=== PATIENT | female | born 1930 | race Caucasian/White ===

== ENCOUNTER → 2016-11-11 | Outpatient (CLI) | payer MEDICARE, OTHER ==
--- NOTE | 2016-11-11 15:37 | MAM ---
EXAM DESCRIPTION: MAMMO BREAST SCREENING BILATERAL CAD, images were reviewed with CAD technology, R2 computer-aided detection. CLINICAL HISTORY: [facility]. COMPARISON: 2010. FINDINGS: Routine views are obtained. Scattered glandular pattern. No dominant mass, architectural distortion or clustered microcalcification.. IMPRESSION: Benign exam. BIRAD CATEGORY: 2 BENIGN RECOMMENDATIONS: FOLLOW-UP: Routine screening mammogram in one year. According to the [employer], yearly mammograms are recommended starting at age 40 and continuing as long as a woman is in good health. Any breast change noted on a breast self-exam should be reported promptly to the patient's healthcare provider. Breast MRI is recommended for women with an approximately 20-25% or greater lifetime risk of breast cancer, including women with a strong family history of breast or ovarian cancer and women who have been treated for Hodgkin's disease. Electronically signed by: Donna Srinivasan 11/11/2016 15:36
== END ==
LOC: MAMMO 08:29
PROVIDERS: ATTEND Family Medicine
DX: Z12.31 Encounter for screening mammogram for malignant neoplasm of breast (principal)
CPT/HCPCS: 77052; G0202

== ENCOUNTER 2017-09-15 11:38 | Emergency (ER) | payer MEDICARE, OTHER ==
[2017-09-15] MEDS ORDERED: SODIUM CHLORIDE 0.9% 1000ML 1,000 ML IVS ONE (12:12)
--- NOTE | 2017-09-15 12:15 | ED.PDOC ---
History of Present Illness - General Chief Complaint: Abdominal Pain Stated Complaint: N/V/D and feeling weak Time Seen by Provider: 09/15/17 12:12 Information Source: patient, RN notes reviewed, Vital Signs reviewed Exam Limitations: no limitations - History of Present Illness Initial Comments: Patient presents to the ER with c/o nausea, vomiting, diarrhea and generalized weakness. Symptoms started 09/11/17 with N/V and generalized abd pain. That lasted 2 days. Now she is having a little bit of diarrhea and just feels like she has no energy. She is concerned she is dehydrated. started with the same symptoms on 09/12/17. Abdominal Pain Onset Location: generalized abdomen Pain Radiation: no radiation Quality: moderate, cramping Timing/Duration: days - 4 Improving Factors: nothing Worsening Factors: nothing Associated Symptoms: diarrhea, fatigue, nausea/vomiting, weakness Review of Systems - Review of Systems Constitutional: States: chills, malaise, weakness. Denies: fever EENTM: States: no symptoms reported Respiratory: States: no symptoms reported Cardiology: States: no symptoms reported Gastrointestinal/Abdominal: States: see HPI Genitourinary: States: no symptoms reported Musculoskeletal: States: joint pain - bilateral hips Skin: States: no symptoms reported Neurological: States: no symptoms reported Past Medical History (General) - Patient Medical History Hx Hypertension: Yes - Social History Hx Tobacco Use: No Family Medical History - Family History Mother Family History: Unknown Physical Exam - Physical Exam General Appearance: Alert, Comfortable, No apparent distress, Well Developed, Well Groomed, Well Hydrated, Well Nourished Neck: non-tender, full range of motion, supple, normal inspection Respiratory: lungs clear, normal breath sounds, no respiratory distress, no accessory muscle use Cardiovascular/Chest: normal peripheral pulses, regular rate, rhythm, no gallop , no JVD, no murmur Peripheral Pulses: 2+ Gastrointestinal/Abdominal: normal bowel sounds, non tender, soft, no organomegaly, no pulsatile mass Extremity: normal inspection Neurologic: alert, normal mood/affect, oriented x 3 Skin Exam: normal color, warm/dry Progress - Progress Progress: 09/15/17 13:41 Patient thinks she is feeling better. Still looks slightly dehydrated so will give and additional 500cc NS bolus - Results/Orders Results/Orders: Laboratory Tests 11/20/17 11/20/17 12:27 12:27 WBC 5.0 RBC 4.03 L Hgb 12.3 Hct 36.2 MCV 90.0 MCH 30.5 MCHC 33.8 RDW 13.8 Plt Count 236 MPV 7.3 L Absolute Neuts (auto) 3.40 Absolute Lymphs (auto) 0.90 L Absolute Monos (auto) 0.70 Absolute Eos (auto) 0.00 Absolute Basos (auto) 0.00 Neutrophils % 67.6 Lymphocytes % 17.4 L Monocytes % 14.6 H Eosinophils % 0.1 L Basophils % 0.3 Sodium 132 L Potassium 3.7 Chloride 100 L Carbon Dioxide 22 Anion Gap 13.7 BUN 27 H Creatinine 1.39 H BUN/Creatinine Ratio 19.4 Random Glucose 128 H Serum Osmolality 271.3 L Calcium 9.3 Total Bilirubin 0.4 AST 19 ALT 9 L Alkaline Phosphatase 59 Serum Total Protein 7.0 Albumin 3.5 Globulin 3.5 Albumin/Globulin Ratio 1.0 L Departure - Departure Clinical Impression: Gastroenteritis, Dehydration, mild Time of Disposition: 14:31 Disposition: Discharge to Home or Self Care Condition: Good Departure Forms: ED Discharge - Pt. Copy, Patient Portal Self Enrollment Instructions: DI for Viral Gastroenteritis -- Adult Diet: resume usual diet Activity: increase activity as tolerated Referrals: Omar Serna MD [Primary Care Provider] - 1-2 Weeks Home Medications: Ambulatory Orders Lisinopril 40 mg DAILY 07/26/14
[2017-09-15 12:58] VITALS: O2SAT 99
[2017-09-15] MEDS ORDERED: SODIUM CHLORIDE 0.9% 500ML 500 ML IVS ONE (13:41)
[2017-09-15 15:00] VITALS: BP 128/70; TEMP 97.9
== END 2017-09-15 14:58 | disposition home or self-care (01) ==
LOC: ER 11:38
DX: K52.9 Noninfective gastroenteritis and colitis, unspecified (principal); E86.0 Dehydration; I10 Essential (primary) hypertension
CPT/HCPCS: 36415; 80053; 85025; J7030; J7040

== ENCOUNTER → 2017-11-11 | Outpatient (CLI) | payer MEDICARE, OTHER | END | disposition home or self-care (01) | LOC: GMAJ 10:19 | PROVIDERS: ATTEND Family Medicine | DX: I10 Essential (primary) hypertension (principal) ==

== ENCOUNTER → 2017-11-12 | Outpatient (CLI) | payer MEDICARE, OTHER ==
--- NOTE | 2017-11-13 09:04 | MAM ---
EXAM DESCRIPTION: 3D Screening BILATERAL : Digital Mammography. CLINICAL HISTORY: 87 years Female SCREENING . No complaints. No family history of breast cancer. Postmenopausal. HRT 5 or more years ago. Right breast cyst aspiration. COMPARISON: 2-D digital screening bilateral studies 11/11/2016 and 10/24/2015. Report from prior examination also reviewed. TECHNIQUE: Bilateral CC and MLO projection full-field images, 3-D tomosynthesis digital mammographic technique. Also bilateral synthesized CC/ MLO full-field images . CAD not utilized. 2-D digital full-field images, MLO and CC projections bilaterally, non-displaced, with CAD. FINDINGS: The breast parenchymal density pattern is: Almost entirely fatty. No skin thickening or nipple retraction bilateral intramammary lymph nodes. Bilateral vascular calcifications. Bilateral solitary microcalcifications. No focal, stellate mass or density, focal asymmetry , and no suspicious microcalcifications bilaterally. Stable mammograms compared to prior study, taking into account differences in mammographic technique IMPRESSION: BI-RADS CATEGORY: 2 - BENIGN FINDINGS. FOLLOW UP: Routine digital bilateral screening, one year interval from October 2017. Written communication explaining the IMPRESSION and follow-up, will be mailed to the patient and referring health care provider. According to the [employer], yearly mammograms are recommended starting at age 40 and continuing as long as a woman is in good health. Any breast change noted on a breast self-exam should be reported promptly to the patient's healthcare provider. Breast MRI is recommended for women with an approximately 20-25% or greater lifetime risk of breast cancer, including women with a strong family history of breast or ovarian cancer and women who have been treated for Hodgkin's disease. A negative mammographic report should not delay tissue diagnosis in patients with significant clinical history or physical findings. Extremely dense breast tissue limits the sensitivity of digital mammography. Electronically signed by: Amos Griffin MD 11/13/2017 9:04 AM PROFILE GRINDER
== END | disposition home or self-care (01) ==
LOC: MAMMO 11:20
PROVIDERS: ATTEND Family Medicine
DX: Z12.31 Encounter for screening mammogram for malignant neoplasm of breast (principal)

== ENCOUNTER 2018-02-24 14:40 | Inpatient (IN) | payer MEDICARE, OTHER ==
--- NOTE | 2018-02-24 15:02 | HP ---
SUPERVISING PHYSICIAN: Yoav Matamoros MD CHIEF COMPLAINT: Right hip pain. HISTORY OF PRESENT ILLNESS: Ms. Pollock is an 87 year-old female patient that presented to Dr. Serna office today with right hip pain. She noted to be at [place] with friends and was walking up an embankment, slipped and tried to get hold of a tree that gave way resulting in her laying on her right hip resulting in severe pain. In the clinic, x-rays were completed revealing a subcapital fracture of the right femur. Dr. Link requested the patient be directed admitted after talking with Dr. Perera, orthopedist, and is to have a surgical repair in the morning. The patient is now going to be admitted directly from the clinic for a right hip fracture. The patient was in stable condition on admission. PAST MEDICAL HISTORY: 1. Hypertension with a grade 2 diastolic heart failure. 2. Osteoarthritis. 3. Osteopenia. PAST SURGICAL HISTORY: 1. Appendectomy. 2. Cholecystectomy. 3. Hysterectomy. 4. Total right knee replacement. CURRENT MEDICATIONS: 1. Multivitamins with minerals daily. 2. Aspirin low-dose 81 mg. 3. Lisinopril 40 mg daily. 4. Carvedilol 6.25 mg at bedtime. 5. Amlodipine 5 mg daily. ALLERGIES: No known drug allergies. FAMILY HISTORY: Mother at age 88 due to ovarian cancer. Father at age 82 due to acute myocardial infarction. SOCIAL HISTORY: The patient is retired, is and lives in [place]. She has never smoke and does not drink alcohol. REVIEW OF SYSTEMS: CONSTITUTIONAL: Denies fever or chills. HEENT: No headaches, sore throat, nasal congestion, earaches. RESPIRATORY: No shortness of breath, cough or wheezing. CARDIOVASCULAR: No reported chest pain, palpitations, syncopal episodes. GASTROINTESTINAL: No nausea, vomiting, diarrhea or abdominal pain. EXTREMITIES: As per history of present illness. Pain to the right hip with a documented hip fracture radiographically. No reported paresthesias, no edema. NEUROLOGIC: She is alert and oriented x 3. There are no reported syncopal episodes, ataxia, dysesthesia. PHYSICAL EXAMINATION: VITAL SIGNS: Temperature 97.7, pulse 73, blood pressure 158/76, respirations 16, saturation 94% on room air. Admission weight 78.4 kg. GENERAL: The patient appears to be comfortable in no acute distress, she is alert. HEENT: Tympanic membranes are clear bilaterally. Oropharynx is pink and moist without any lesions. NECK: Supple, non-tender with full range of motion, no jugular venous distention. CHEST: Clear to auscultation with rhonchi, rales, or wheezes. CARDIOVASCULAR: Regular rate and rhythm without murmurs, gallops, or rubs. ABDOMEN: Soft, non-tender with positive bowel sounds. EXTREMITIES: Lower extremities showed no lateral rotation or internal rotation in the right lower extremity. She is able to move ad shantel with no reported paresthesias. There is no deformity noted over the right hip. No bruising is found. Pulses distally are strong, capillary refill is brisk. NEUROLOGIC: She is alert and oriented x 3. Facial features were symmetrical. Extraocular movement within normal limits with no notable nystagmus. Cranial nerves II through XII are grossly intact. LABORATORY: CBC showed a white count of 8,100, hemoglobin 9.6, hematocrit 34.9 , platelet count 260,000. Coagulation studies showed normal PT/PTT. Chemistries showed normal electrolytes, potassium 4.0, BUN 29, creatinine 1.19, glucose 105 calcium 9.5. Liver functions all within normal limits. Urinalysis pending. RADIOLOGY: She had a 2-view hip in the clinic that revealed subcapital right hip fractured femur. She had a pelvic x-ray per radiology interpretation showed nonimpacted subcapital fracture of the right femur. No other acute findings. ASSESSMENT: 1. Acute subcapital fracture of the right femur status post same level fall. 2. Hypertension. 3. Osteoarthritis. 4. Osteopenia likely contributing to #1. PLAN: The patient is going to admitted directly to the medical/surgical floor in anticipation of right hip repair in the morning by Dr. Perera, orthopedic surgeon. She will be worked up for preparation purposes, labs, x-ray. She will be n.p.o. tonight. Will hold her lisinopril until in the morning. Dr. Perera has been consulted. She will have some IV fluids for some mild dehydration to include half normal saline with 20 of potassium run at 80 an hour. She will be on DVT prophylaxis with SCDs and then postoperatively as per orthopedic protocol. Will anticipate her length of stay to be at least 2 to 3 days. Until discharge, we will continue to monitor closely and treat appropriately. [facility][id number] [facility]
[2018-02-24] MEDS ORDERED: SODIUM CHLORIDE 0.9% (FLUSH) 10 ML SYG IV PRN (15:08)
--- NOTE | 2018-02-24 16:16 | RAD ---
EXAM DESCRIPTION: Pelvis,2 or More Views CLINICAL HISTORY: 87 years Female rt hip fx preop COMPARISON: None. TECHNIQUE: Pelvis, two view FINDINGS: There is an impacted subcapital fracture of the right femur. Fracture is not significantly displaced. Left hip appears intact. Mild degenerative changes in the hips bilaterally. Mild degenerative changes the lower lumbar spine. Symphysis pubis and SI joints appear intact. IMPRESSION: Mildly impacted subcapital fracture of the right femur Electronically signed by: Yoko Cazares MD 02/24/2018 4:15 PM CDT
[2018-02-24] MEDS: IV SET AND CAP CHANGE INJ INJ SCH (16:38)
[2018-02-24] MEDS: HYDROcodone 5MG/APAP 325MG 1 EA TAB PO PRN (18:09)
[2018-02-24] MEDS: KCL 20MEQ/0.45% NS 1,000 ML IVS PRN (19:06)
[2018-02-24] MEDS ORDERED: CARVEDILOL 3.125 MG TAB ONE (19:25)
[2018-02-24] MEDS ORDERED: NON-FORMULARY MEDICATION 1 EA MIS (Carvedilol [Carvedilol] 6.25 MG) PO SCH (21:00)
[2018-02-25] MEDS: MORPHINE SULFATE INJ 10 MG/ML VIAL IV PRN ×2 (02:56→13:03)
[2018-02-25] MEDS ORDERED: BUPIVACAINE 0.25% W/EPI 50 ML VIAL INJ ONE (06:03)
[2018-02-25] MEDS ORDERED: ceFAZolin SODIUM 1 GM VIAL ONE (06:03)
[2018-02-25] MEDS ORDERED: fentaNYL CITRATE INJ 50 MCG/ML AMP ONE ×2 (06:14→10:31)
[2018-02-25] MEDS ORDERED: LACTATED RINGERS 1,000 ML ONE ×2 (06:14→08:46)
[2018-02-25] MEDS ORDERED: LIDOCAINE 2 % GEL 5 ML TUBE TOP ONE (06:15)
[2018-02-25] MEDS ORDERED: ROCURONIUM BROMIDE 10 MG/ML VIAL ONE (06:32)
[2018-02-25] MEDS: amLODIPine BESYLATE 5 MG TAB PO SCH ×2 (06:48→09:53)
[2018-02-25] MEDS ORDERED: VANCOMYCIN HCL INJ 1,000 MG VIAL IVPB ONE ×2 (06:55→20:07)
[2018-02-25] MEDS ORDERED: ceFAZolin SODIUM 2 GRAMS PREMI 50 ML IVPB ONE ×3 (06:55→20:07)
[2018-02-25] MEDS ORDERED: VANCOMYCIN HCL INJ 1,000 MG in SODIUM CHLORIDE 0.9% 250ML 250 ML IVPB ONE ×2 (06:56→09:18)
[2018-02-25] MEDS ORDERED: SODIUM CHLORIDE 0.9% 250ML 250 ML ONE ×2 (06:56→20:07)
[2018-02-25] MEDS ORDERED: ceFAZolin SODIUM 2 GRAMS PREMI 2 GM in PREMIX BAG 1 BAG IVPB ONE (06:57)
[2018-02-25] MEDS ORDERED: ceFAZolin SODIUM 1 GM VIAL IVPB ONE (07:30)
[2018-02-25] MEDS ORDERED: SODIUM CHLORIDE 0.9% 10 ML VIAL IV PRN (07:39)
[2018-02-25] MEDS: ceFAZolin SODIUM 1 GM VIAL ONE ×2 (07:54→08:43)
[2018-02-25] MEDS: VANCOMYCIN HCL INJ 1,000 MG VIAL IVPB ONE ×2 (07:54→08:43)
[2018-02-25] MEDS ORDERED: MORPHINE SULFATE *EPIDURAL* 0.5 MG/ML VIAL ONE (08:46)
[2018-02-25] MEDS ORDERED: ENOXAPARIN SODIUM 30 MG/0.3 ML SYG SUBCU SCH (09:30)
[2018-02-25] MEDS ORDERED: ceFAZolin SODIUM 2 GRAMS PREMI 2 GM in PREMIX BAG 1 BAG IVPB SCH (09:30)
[2018-02-25] MEDS ORDERED: ATROPINE SULFATE 0.4 MG/ML 1ML VIAL IV ONE (10:00)
[2018-02-25] MEDS ORDERED: NEOSTIGMINE METHYLSULFATE 1 MG/ML ML IV ONE (10:00)
[2018-02-25] MEDS ORDERED: LIDOCAINE 1% 10 ML VIAL INJ ONE (10:00)
[2018-02-25] MEDS ORDERED: PROPOFOL 200 MG/20 ML VIAL IV ONE (10:00)
[2018-02-25] MEDS ORDERED: fentaNYL CITRATE INJ 50 MCG/ML AMP IV ONE (10:38)
--- NOTE | 2018-02-25 10:40 | RAD ---
EXAM DESCRIPTION: Hip,Right 2 Views CLINICAL HISTORY: 87 years Female, post-op COMPARISON: None. FINDINGS: 2 views of the right hip show postoperative changes related to right hip arthroplasty without hardware other surgical complication. Gas in the soft tissues lateral to the right hip joint is likely related to recent surgery. No periprosthetic fracture. No concerning radiopaque foreign body. IMPRESSION: Uncomplicated postoperative changes in the right hip. Electronically signed by: Carlos Walton MD 02/25/2018 10:39 AM CDT
--- NOTE | 2018-02-25 10:41 | RAD ---
EXAM DESCRIPTION: Pelvis,2 or More Views CLINICAL HISTORY: 87 years Female, post-op COMPARISON: None. FINDINGS: AP and frog leg views the pelvis again show postoperative changes in the right hip without apparent hardware or other surgical complication. No periprosthetic or other pelvic fracture or malalignment is seen. The soft tissues are unremarkable. Moderate amount of colonic stool and gas. Mild to moderate degenerative changes in the left hip including joint space narrowing. IMPRESSION: Postoperative changes in the right hip without apparent surgical complication. Moderate degenerative changes in the left hip and a moderate amount of colonic stool and gas. Electronically signed by: Carlos Walton MD 02/25/2018 10:40 AM CDT
--- NOTE | 2018-02-25 11:41 | CONS ---
CHIEF COMPLAINT: Right hip pain. HISTORY OF PRESENT ILLNESS: Ms. Pollock is an 87-year-old female that fell on the day of presentation. She presented to Dr. Serna and Dr. Serna did an x-ray which showed fracture of the right hip. Because of the fracture, Ms. Pollock was admitted. I was consulted for this hip pain. After speaking with her, she denied any other injury associated with this fall, denied any radiation of pain and denied any neurologic symptoms. PAST MEDICAL HISTORY: 1. Hypertension. 2. Arthritis. 3. Osteopenia. PAST SURGICAL HISTORY: 1. Appendectomy. 2. Cholecystectomy. 3. Hysterectomy. 4. Knee replacement. MEDICATIONS: 1. Aspirin. 2. Lisinopril. 3. Carvedilol. 4. Amlodipine. 5. Multiple vitamins. ALLERGIES: NO KNOWN DRUG ALLERGIES. SOCIAL HISTORY: The patient does not drink, smoke or use any illicit drugs. FAMILY HISTORY: None pertinent to today's complaint. REVIEW OF SYSTEMS: Negative except as indicated in the History of Present Illness. PHYSICAL EXAMINATION: VITAL SIGNS: Blood pressure 158/76. Respirations 16. O2 saturation 94% on room air. Temperature 97.7. Pulse 73. MENTAL STATUS: The patient is awake, alert, and is able to give a good history and participate in the physical. The patient is oriented to person, place and time. SKIN: Normal tone and turgor. HEENT: Normocephalic, atraumatic. Pupils equal, round and reactive. Mucosal membranes are moist. NECK: Normal range of motion. No thyromegaly, no lymphadenopathy. CHEST: Normal respiratory excursion. CARDIAC: Regular rate and rhythm. No murmurs, rubs or gallops. MUSCULOSKELETAL: Bilateral upper extremities show full active range of motion without pain. She has intact sensation. There is no deformity and no crepitus. Strength is 5/5. The left lower extremity shows no pain with range of motion of the hip. She has no pain with range of motion o f the knee. Sensation is intact with no deformity and it is warm and well perfused. The right hip shows pain with any attempted range of motion. Sensation is intact. It is warm and well perfused. There is no deformity. Plantar flexion strength is 5/5. IMAGING: X-rays show a subcapital femoral neck fracture. ASSESSMENT: 1. Femoral neck fracture. PLAN: The plan at this point is for hemiarthroplasty. We have discussed the risks, benefits, and alternatives to that with the patient and she has given informed consent. [facility][id number] [facility]
[2018-02-25] MEDS: KCL 20MEQ/0.45% NS 1,000 ML IVS PRN (12:50)
--- NOTE | 2018-02-25 13:30 | OP ---
PREOPERATIVE DIAGNOSIS: 1. Femoral neck fracture of right hip. POSTOPERATIVE DIAGNOSIS: 1. Femoral neck fracture of right hip. PROCEDURE: 1. Hemiarthroplasty. SURGEON: Andrez Perera MD. LACING PRESSER: Amos Ward CST, SA-C. ANESTHESIA: General. COMPLICATIONS: None. FINDINGS: Basicervical femoral neck fracture. INDICATION: Ms. Pollock is an 87-year-old female that fell on the day of presentation. She had the acute onset of pain of the hip that she localized to the groin. She denies any other injury associated with this fall. She was admitted and x-rays revealed a fracture of the femoral neck. She was admitted for operative intervention. We discussed the risks, benefits and alternatives to operative therapy for this and informed consent was given for hemiarthroplasty. PROCEDURE: The patient was brought to the Operating Room and placed in supine position. Anesthesia was induced and the patient was transitioned into the lateral decubitus position. The leg and hemipelvis were sterilely prepped and draped and an incision was made centered on the greater trochanter with extension both proximally and distally. Dissection was carried down to the iliotibial band which was sharply incised along the course of its fibers. A Charnley retractor was placed and the abductor musculature was identified. The anterior one-third of the abductor musculature was elevated off the greater trochanter using electrocautery and the capsule was incised. The femoral head was removed and the primary femoral neck cut was made. The acetabulum was examined and found to be free of any significant defect, therefore attention was focused on the femur. The femoral canal was sequentially broached until an appropriate sized trial prosthesis was placed. A trial femoral head was placed and the hip was reduced. The hip was taken through a full range of motion and demonstrated stability without impingement or pending dislocation and the leg length appeared to be paresthesias. Following trialing, the trial component was removed and the femoral canal was prepared for cementation of the prosthesis. A distal cement restrictor was placed and the final component was cemented into place. The excess cement was removed and the remaining cement was allowed to cure. The final head was impacted and the hip was reduced, taken through a full range of motion, and found to be stable without impingement. The wound was thoroughly irrigated and the abductor musculature was reapproximated to the greater trochanter through drill holes using Ethibond. The repair was augmented with PDS suture and the iliotibial band was subsequently closed. The subcutaneous tissues were closed with a combination of running and interrupted subcuticular stitches, a sterile dressing was placed , and the patient was transitioned into the supine position. The patient was awoken from anesthesia and taken to the Recovery Room in stable condition. POSTOPERATIVE INSTRUCTIONS: The patient will be weight-bearing as tolerated on postoperative day 1. COMPONENTS: Sadi SecureFit hemiarthroplasty stem, size 6 femoral stem and size 49 head. #[id number] [facility]
--- NOTE | 2018-02-25 15:28 | PN ---
DATE: 02/25/18 SUPERVISING PHYSICIAN: Yoav Matamoros M.D. SUBJECTIVE: The patient is lying in her hospital bed. She is visiting with family and friends. I am seeing her postoperatively after her right hemiarthroplasty. She has no complaints postoperatively. There is no nausea, vomiting, chest pain or shortness of breath. OBJECTIVE: VITAL SIGNS: She is afebrile, heart rate 62, blood pressure 123/69, respiratory rate 16, O2 sat 95% on 2 liters nasal cannula. RESPIRATORY: Essentially clear to auscultation bilaterally. CARDIAC: Regular rate and rhythm. GASTROINTESTINAL: Abdomen is soft, nondistended, non-tender. Bowel sounds are positive. EXTREMITIES: She has a dressing to her right lateral hip that is dry and intact. Bilateral pedal pulses are palpable at +2. NEUROLOGIC : She is awake, alert and oriented times three. LABORATORY: There are no labs and films to report at this time. ASSESSMENT: 1. Acute subcapital fracture of the right femur status post same level fall. 2. Postoperative day zero right hemiarthroplasty performed by Dr. Andrez Perera, orthopedic surgeon due to #1. 3. Hypertension. 4. Osteoarthritis. 5. Osteopenia that may have contributed to #1. PLAN: We will continue present supportive care. Tomorrow she will begin her physical therapy for strengthening and conditioning. Orthopedic issues will be per Dr. Perera, orthopedic surgeon. I have ordered an H&H for in the morning. Other lab is stable at this time. I have encouraged good pulmonary hygiene. We will continue to monitor the patient closely and follow as needed. Dr. Matamoros is the collaborating physician available for consultation. #[id number] [facility]
[2018-02-25] MEDS: ceFAZolin SODIUM 2 GRAMS PREMI 2 GM in PREMIX BAG 1 BAG IVPB SCH ×2 (15:41→23:24)
[2018-02-25] MEDS: ONDANSETRON INJ 4 MG/2 ML VIAL IV PRN (16:54)
[2018-02-25] MEDS: VANCOMYCIN HCL INJ 1,000 MG in SODIUM CHLORIDE 0.9% 250ML 250 ML IVPB SCH (20:29)
[2018-02-25] MEDS: CARVEDILOL 3.125 MG TAB PO SCH (20:48)
[2018-02-25] MEDS: HYDROcodone 5MG/APAP 325MG 1 EA TAB PO PRN (20:48)
[2018-02-25] MEDS: ENOXAPARIN SODIUM 30 MG/0.3 ML SYG SUBCU SCH (22:12)
[2018-02-26] MEDS: HYDROcodone 5MG/APAP 325MG 1 EA TAB PO PRN ×3 (02:51→14:54)
[2018-02-26] MEDS: KCL 20MEQ/0.45% NS 1,000 ML IVS PRN ×2 (03:00→17:55)
[2018-02-26] MEDS ORDERED: ceFAZolin SODIUM 2 GRAMS PREMI 50 ML IVPB ONE (04:28)
[2018-02-26] MEDS: ceFAZolin SODIUM 2 GRAMS PREMI 2 GM in PREMIX BAG 1 BAG IVPB SCH (06:52)
[2018-02-26] MEDS ORDERED: SODIUM CHLORIDE 0.9% 250ML 250 ML ONE (08:02)
[2018-02-26] MEDS ORDERED: VANCOMYCIN HCL INJ 1,000 MG VIAL IVPB ONE (08:03)
[2018-02-26] MEDS: VANCOMYCIN HCL INJ 1,000 MG in SODIUM CHLORIDE 0.9% 250ML 250 ML IVPB SCH (08:39)
[2018-02-26] MEDS: ENOXAPARIN SODIUM 30 MG/0.3 ML SYG SUBCU SCH ×2 (10:15→22:02)
[2018-02-26] MEDS: amLODIPine BESYLATE 5 MG TAB PO SCH (10:15)
[2018-02-26] MEDS: ONDANSETRON INJ 4 MG/2 ML VIAL IV PRN (13:28)
--- NOTE | 2018-02-26 18:01 | PN ---
DATE: 02/26/18 SUPERVISING PHYSICIAN: Yoav Matamoros M.D. SUBJECTIVE: The patient is sitting in her hospital bed eating her meal. Her family is at the bedside. She had several bouts of nausea today with some vomiting but not sure the medications gave her help. She complains she does not have much of an appetite. OBJECTIVE: VITAL SIGNS: She is afebrile, heart rate 78, blood pressure 107/58, respiratory rate 16, O2 sat 97% on 2 liters nasal cannula. RESPIRATORY: Essentially clear to auscultation bilaterally. CARDIAC: Regular rate and rhythm. GASTROINTESTINAL: Abdomen is soft, nondistended, non-tender. Bowel sounds are positive. EXTREMITIES: She has a dressing along her right lateral hip that is dry and intact. Bilateral pedal pulses are palpable at +2. NEUROLOGIC: She is awake, alert and oriented times three. LABORATORY: Hemoglobin 9.4, hematocrit 27.6. All other labs and films have been reviewed via the EMR. ASSESSMENT: 1. Acute subcapital fracture of the right femur status post same level fall. 2. Postoperative day #1 right hemiarthroplasty performed by Dr. Andrez Perera, orthopedic surgeon due to #1. 3. Hypertension. 4. Osteoarthritis. 5. Osteopenia.. PLAN: We will continue present supportive care. She will continue with physical therapy for strengthening and conditioning. Orthopedic issues will be per Dr. Andrez Perera, orthopedic surgeon. I have encouraged good pulmonary hygiene. Discharge planning includes discharge probably Friday or Friday of next week and she will be discharged home. She has requested that [facility] physical therapy see her after discharge. We will continue to monitor the patient closely and follow as needed. Dr. Matamoros is the collaborating physician available for consultation. #[id number] [facility]
[2018-02-26] MEDS: ACETAMINOPHEN 325 MG TAB PO PRN (18:03)
[2018-02-26] MEDS: CARVEDILOL 3.125 MG TAB PO SCH (21:06)
[2018-02-27] MEDS: KCL 20MEQ/0.45% NS 1,000 ML IVS PRN (05:51)
[2018-02-27] MEDS: HYDROcodone 5MG/APAP 325MG 1 EA TAB PO PRN ×2 (06:16→21:14)
[2018-02-27] MEDS: amLODIPine BESYLATE 5 MG TAB PO SCH (10:06)
[2018-02-27] MEDS: ENOXAPARIN SODIUM 30 MG/0.3 ML SYG SUBCU SCH ×2 (10:06→21:34)
[2018-02-27] MEDS: ACETAMINOPHEN 325 MG TAB PO PRN (13:56)
[2018-02-27] MEDS: IV SET AND CAP CHANGE INJ INJ SCH (15:35)
[2018-02-27] MEDS ORDERED: POLYETHYLENE GLYCOL 3350 17 GM PCKT PO PRN (18:53)
--- NOTE | 2018-02-27 19:53 | PN ---
SUPERVISING PHYSICIAN: Yoav Matamoros MD DATE: 02/27/18 SUBJECTIVE: The patient is lying in her hospital bed. Her daughter is at the bedside. She has no complaints of nausea, vomiting, diarrhea or constipation, chest pain or shortness of breath. OBJECTIVE: VITAL SIGNS: Afebrile. Heart rate 84. Blood pressure 128/55. Respiratory rate 16. O2 saturation 95% on 1 liter nasal cannula. RESPIRATORY: Essentially clear to auscultation bilaterally. CARDIAC: Regular rate and rhythm. EXTREMITIES: She has a dressing to her right lateral hips that is dry and intact. Bilateral pedal pulses are palpable at +2. NEUROLOGIC: Awake, alert and oriented times three. LABORATORY: There are no labs and films to report at this time. ASSESSMENT: 1. Acute subcapital fracture of the right femur status post same level fall. 2. Postoperative day #2 right hemiarthroplasty performed by Dr. Andrez Perera, orthopedic surgeon, due to #1. 3. Hypertension. 4. Osteoarthritis. 5. Osteopenia. PLAN: We will continue present supportive care. Orthopedic issues will be per Dr. Andrez Perera, orthopedic surgeon. She will continue with her physical therapy for strengthening and conditioning. We are not sure on her discharge date and there is still some question as to whether she will go home with [facility] or if she will be discharged from the Acute Care setting to Swing Bed admission. We will follow physical therapy with their recommendations. I have also initiated bladder training and we will discontinue her Rodriguez once that is completed. We will continue to monitor the patient closely and follow as needed. Dr. Matamoros is the collaborating physician and available for consultation. #[id number] [facility]
[2018-02-27] MEDS: CARVEDILOL 3.125 MG TAB PO SCH (21:15)
[2018-02-28] MEDS: amLODIPine BESYLATE 5 MG TAB PO SCH (08:55)
[2018-02-28] MEDS: ENOXAPARIN SODIUM 30 MG/0.3 ML SYG SUBCU SCH ×2 (10:39→21:51)
[2018-02-28] MEDS: ACETAMINOPHEN 325 MG TAB PO PRN (14:51)
[2018-02-28] MEDS: HYDROcodone 5MG/APAP 325MG 1 EA TAB PO PRN (16:51)
--- NOTE | 2018-02-28 19:10 | PN ---
DATE: 02/28/18 SUPERVISING PHYSICIAN: Yoav Matamoros MD SUBJECTIVE: The patient continues to do well with her physical therapy after she just finished this morning. She has had no further complaint. She remains afebrile. We discussed discharge planning. She should be going to [facility] on Friday to continue with outpatient therapy with home health to be further decided on Friday. OBJECTIVE: VITAL SIGNS: Temperature 98.7, pulse 81, blood pressure 108/67, respirations 15 , saturation 99% on room air. I&O: Well balanced with 1048 in and 250 out. Weight 78.7 kg. CHEST: Lungs clear to auscultation. HEART: Regular rate and rhythm. ABDOMEN : Soft, non-tender positive bowel sounds. EXTREMITIES: No cyanosis, clubbing, or edema. There is a dressing in place on the right hip which is clean and dry with no signs of infection and distal pulses were strong, capillary refill brisk. NEUROLOGICAL: She is alert and oriented x 3. LABORATORY No additional laboratory. RADIOLOGY: No studies were done today. ASSESSMENT: 1. Acute subcapital fracture of the right femur status post same level fall. 2. Postoperative day #3 right hemiarthroplasty performed by Dr. Andrez Perera, orthopedic surgeon. 3. Hypertension. 4. Osteoarthritis. 5. Osteopenia. PLAN: Will continue to follow the patient as she continues with her physical therapy efforts. Discussed gong home with her Friday or going to Swing Bed after further assessment by physical therapy and assessment of her home situation as her is unlikely to provide as much assistance as needed. She continues to be encouraged to exercise lower extremities while in bed and utilize deep breathing to prevent postoperative complications. Until discharge , we will continue to monitor closely and treat appropriately. [facility][id number] [facility]
[2018-02-28] MEDS: CARVEDILOL 3.125 MG TAB PO SCH (21:17)
--- NOTE | 2018-03-01 07:50 | PN ---
DATE: 02/26/18 SUBJECTIVE: Ms. Pollock is doing well. She has minimal pain. OBJECTIVE: She is afebrile. Vital signs are stable Dressing is clean, dry and intact. ASSESSMENT: Status post hemiarthroplasty. PLAN: Weightbearing as tolerated. [facility][id number] [facility]
--- NOTE | 2018-03-01 07:53 | PN ---
DATE: 02/27/18 SUBJECTIVE: Ms. Pollock seems to be doing well and again is very comfortable at this time. OBJECTIVE: She is afebrile. Vital signs are stable Wound is clean without signs or symptoms of infection. . ASSESSMENT: Status post hemiarthroplasty. PLAN: Continue with weightbearing as tolerated. We are going to put her on Swing Bed when she is eligible. [facility][id number] [facility]
--- NOTE | 2018-03-01 07:55 | PN ---
DATE: 02/28/18 SUBJECTIVE: Ms. Pollock is resting in bed. OBJECTIVE: She is afebrile. Vital signs are stable. Wound is clean. There are no signs or symptoms of infection. ASSESSMENT: Status post hemiarthroplasty. PLAN: Continue weightbearing. We are going to put her on Swing Bed today. [facility][id number] [facility]
[2018-03-01] MEDS: amLODIPine BESYLATE 5 MG TAB PO SCH (08:54)
[2018-03-01] MEDS: SODIUM CHLORIDE 0.9% (FLUSH) 10 ML SYG IV SCH ×2 (08:55→20:59)
[2018-03-01] MEDS: HYDROcodone 5MG/APAP 325MG 1 EA TAB PO PRN ×2 (09:39→17:43)
[2018-03-01] MEDS: ENOXAPARIN SODIUM 30 MG/0.3 ML SYG SUBCU SCH ×2 (10:13→22:00)
--- NOTE | 2018-03-01 13:33 | PN ---
DATE: 03/01/18 SUPERVISING PHYSICIAN: Pino Oliveira MD SUBJECTIVE: The patient is doing well. She is visiting with multiple family members. She has been up ambulating in the cazares. She remains afebrile. She has had good pain control and is tolerating diet. Discussed with her possible discharge tomorrow to either [facility] or [facility] and the patient is reassuring that she has now arranged for multiple sitters at home and would like to be discharged tomorrow after further arrangements are made for home health to continue with physical therapy. OBJECTIVE: VITAL SIGNS: Temperature 97.0, pulse 81, blood pressure 131/76, respirations 16 , saturation 97% on room air. I&O: Negative balanced of 790 with 980 in and 1750 out. She did have one bowel movement today. Weight is 78.7 kg. CHEST: Lungs clear to auscultation. HEART: Regular rate and rhythm. ABDOMEN : Soft, non-tender positive bowel sounds. EXTREMITIES: No cyanosis, clubbing, or edema. Right incision on the hip shows to be clean and dry with the dressing in place. Distal pulses are showing capillary refill brisk. NEUROLOGICAL: She is alert and oriented x 3. LABORATORY No additional laboratory studies completed. ASSESSMENT: 1. Acute subcapital fracture of the right femur status post same level fall. 2. Postoperative day #4 right hemiarthroplasty performed by Dr. Andrez Perera, orthopedic surgeon. 3. Hypertension. 4. Osteoarthritis. 5. Osteopenia. PLAN: Will continue with physical therapy and reevaluation in the morning with anticipation of discharge to home after speaking with the patient again as noted above with assistance of family members with home health. She will need Xarelto on discharge as per protocol. She is requiring minimal pain management. Will again anticipate discharge tomorrow and until then, continue to monitor and treat appropriately. #[id number] [facility]
[2018-03-01] MEDS: CARVEDILOL 3.125 MG TAB PO SCH (20:59)
[2018-03-02] MEDS: ENOXAPARIN SODIUM 30 MG/0.3 ML SYG SUBCU SCH (08:44)
[2018-03-02] MEDS: SODIUM CHLORIDE 0.9% (FLUSH) 10 ML SYG IV SCH (08:44)
[2018-03-02] MEDS: amLODIPine BESYLATE 5 MG TAB PO SCH (08:44)
[2018-03-02] MEDS: HYDROcodone 5MG/APAP 325MG 1 EA TAB PO PRN (08:50)
[2018-03-02] MEDS: ACETAMINOPHEN 325 MG TAB PO PRN (10:32)
[2018-03-02 11:16] VITALS: BP 126/69; TEMP 97.7; O2SAT 96
--- NOTE | 2018-03-02 13:52 | DS ---
SUPERVISING PHYSICIAN: Omar Serna MD ADMISSION DIAGNOSIS: 1. Acute subcapital fracture of the right femur secondary to a fall. 2. Hypertension. 3. Osteoarthritis. 4. Osteopenia. DISCHARGE DIAGNOSIS: 1. Right femur fracture status post repair. 2. Hypertension. 3. Osteoarthritis. 4. Osteoporosis. HOSPITAL COURSE: This is an 87-year-old female who presented to Dr. Serna' office with right hip pain. [place] walking [place] an embankment, she slipped and fell. She has had right hip since that time. In the clinic, x-rays revealed a subcapital fracture of the right femur. Dr. Serna then sent the patient to the hospital for direct admission. Dr. Perera was consulted. At that point, Dr. Perera performed surgical intervention on 02/25/18 with a right hemiarthroplasty of the hip. Her postoperative days in the hospital were pretty uneventful and she has participated in physical therapy quite well. Therefore, she will be discharged today with home health to include physical therapy services. She will have a followup appointment with Dr. Serna as well as with Dr. Perera. I have written for Xarelto 10 mg for the next 30 days to complete 35 day anticoagulation postoperative course for DVT prophylaxis. Additionally, I have gotten Dr. Serna to write for some Stella for pain control. #[id number] [facility]
== END 2018-03-02 11:05 | disposition home health service (06) | DRG 470 ==
LOC: MS 14:40
PROVIDERS: ADMIT Family Medicine; ATTEND Nurse Practitioner
PROC: 0SRR0J9 Replacement of Right Hip Joint, Femoral Surface with Synthetic Substitute, Cemented, Open Approach (ICD-10-PCS; principal; 2018-02-25 07:07)
DX: S72.011A Unspecified intracapsular fracture of right femur, initial encounter for closed fracture (principal); I50.32 Chronic diastolic (congestive) heart failure; E86.0 Dehydration; I11.0 Hypertensive heart disease with heart failure; Z96.651 Presence of right artificial knee joint; M19.90 Unspecified osteoarthritis, unspecified site; M81.0 Age-related osteoporosis without current pathological fracture; W01.0XXA Fall on same level from slipping, tripping and stumbling without subsequent striking against object, initial encounter; Y93.89 Activity, other specified; Y92.828 Other wilderness area as the place of occurrence of the external cause; Y99.8 Other external cause status; Z79.82 Long term (current) use of aspirin; Z79.899 Other long term (current) drug therapy

== ENCOUNTER 2018-04-01 23:42 | Inpatient (IN) | payer MEDICARE, OTHER ==
[2018-04-02] MEDS ORDERED: SODIUM CHLORIDE 0.9% 1000ML 1,000 ML IVS ONE (00:05)
[2018-04-02] MEDS ORDERED: ONDANSETRON ODT 8 MG TAB SL ONE (00:05)
--- NOTE | 2018-04-02 01:21 | RAD ---
Procedure: XR ABDOMEN 2 VIEWS SUPINE ERECT Exam Date: 04/02/2018 Ordering Provider: Nathan Matamoros Clinical Indication: nausea and vomiting tonight Comparison: None Findings: Cardiomediastinal silhouette is within normal limits. No focal lung consolidation. No pleural effusion or pneumothorax. Surgical clips in the right upper quadrant. There is no small or large bowel distention. There is no pneumoperitoneum. There are no suspicious calcifications. Pelvic phleboliths. There is no acute osseous abnormality. Postsurgical changes in the right hip. Impression: 1. No acute findings. Electronically signed by: Krishan Khan MD 04/02/2018 1:19 AM CDT
[2018-04-02] MEDS ORDERED: cefTRIAXone SODIUM 1 GM in SODIUM CHL 0.9% 50ML MIN-BAG+ 50 ML IVPB ONE (01:39)
[2018-04-02] MEDS ORDERED: MAGNESIUM SULFATE PREMIX 2GM 2 GM in PREMIX BAG 1 BAG IVPB ONE (01:39)
[2018-04-02] MEDS ORDERED: cefTRIAXone SODIUM 1 GM VIAL ONE ×2 (01:55→11:37)
[2018-04-02] MEDS ORDERED: SODIUM CHL 0.9% 50ML MIN-BAG+ 50 ML IVPB ONE ×2 (01:56→11:37)
[2018-04-02] MEDS ORDERED: MAGNESIUM SULFATE PREMIX 2GM 50 ML IVPB ONE (01:56)
--- NOTE | 2018-04-02 01:57 | ED.PDOC ---
History of Present Illness - General Chief Complaint: GI Problem Stated Complaint: "feeling sick", vomiting Time Seen by Provider: 04/02/18 00:04 Source: patient, family Exam Limitations: no limitations - History of Present Illness Initial Comments: the patient is an 87-year-old female presenting to the emergency room secondary to nausea and vomiting for the last 3 hours. No blood and no bile. No diarrhea. No fever. No abdominal pain. For the last week she has been having increasing weaknes and mild dizziness. No syncope. No obvious blood in the stool. She had a hip replacement 5 weeks ago and was placed on Zaroxolyn but has not been on any GI medications. She does have a history of hypertension and is on multiple blood pressure medications. She does get dizzy with standing. Timing/Duration: unsure Severity: moderate Improving Factors: nothing Worsening Factors: nothing Associated Symptoms: loss of appetite, malaise, nausea/vomiting, weakness Allergies/Adverse Reactions: Allergies Sulfa Antibiotics Allergy (Verified 02/25/18 07:04) Home Medications: Ambulatory Orders Lisinopril 40 mg PO DAILY 07/26/14 Amlodipine Besylate 5 mg PO DAILY 02/24/18 Carvedilol 6.25 mg PO BEDTIME 02/24/18 Multiple Vitamins W/ Minerals [Multivitamin Adults] 1 tab PO DAILY 02/24/18 HYDROcodone 5MG/APAP 325MG [[place] 5/325] 1 ea PO Q4H PRN tab 03/02/18 Rivaroxaban [Xarelto] 10 mg PO DAILY 30 Days #30 tab 03/02/18 Review of Systems - Review of Systems Constitutional: States: malaise, weakness EENTM: States: no symptoms reported Respiratory: States: no symptoms reported Cardiology: States: no symptoms reported Gastrointestinal/Abdominal: States: nausea, vomiting. Denies: constipation, diarrhea Genitourinary: States: frequency Musculoskeletal: States: no symptoms reported Skin: States: no symptoms reported Neurological: States: weakness - generalized Endocrine: States: no symptoms reported All other Systems: No Change from Baseline Past Medical History (General) - Patient Medical History Hx Seizures: No Hx Stroke: No Hx Asthma: No Hx of COPD: No Hx Congestive Heart Failure: No Hx Hypertension: Yes Hx Diabetes: No Hx MRSA: No Surgical History: appendectomy, cholecystectomy, Hysterectomy - Vaccination History Hx Tetanus, Diphtheria Vaccination: Yes Hx Influenza Vaccination: Yes Hx Pneumococcal Vaccination: Yes - Social History Hx Tobacco Use: No Hx Alcohol Use: No Hx Substance Use: No Hx Physical Abuse: No Hx Emotional Abuse: No Family Medical History - Family History Mother Family History: Unknown Physical Exam - Physical Exam General Appearance: Alert, No apparent distress Eye Exam: bilateral normal Ears, Nose, Throat: hearing grossly normal, normal ENT inspection, normal pharynx Neck: full range of motion, supple Respiratory: lungs clear, normal breath sounds, no respiratory distress, no accessory muscle use Cardiovascular/Chest: normal peripheral pulses, regular rate, rhythm, no edema Peripheral Pulses: radial,right: 2+, radial,left: 2+, dorsalis pedis,right: 2+, dorsalis pedis,left: 2+ Gastrointestinal/Abdominal: non tender, soft Rectal Exam: deferred Back Exam: no CVA tenderness, no vertebral tenderness Extremity: normal range of motion, non-tender, normal inspection, no pedal edema , normal capillary refill 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 The patient has acute renal failure, anemia, hypomagnesemia, a uti and orthostasis. she also likely has gastritis from her blood thinner. This is likely due to dehydration as well as some hypotension. She will need to have some of her blood pressure medications reduced. Additionally the patient does have some persistent anemia. A guaiac of her next bowel movement may be beneficial. She has been on xarelto. The patient has received a liter of fluids for the acute renal failure. Additionally she has a urinary tract infection that may be contributing to the renal failure. he has been started on Rocephin. She has some hypomagnesemia and is receiving a first bolus dose of magnesium. She has responded well to antiemetics here. the patient has been started on GI medications for gastritis. - Results/Orders Results/Orders: EKG shows a heart rate of 96 bpm that is a normal sinus rhythm. Mild right axis deviation. No acute ST segment changes concerning for immediate ischemia. Laboratory Tests 04/02/18 04/02/18 04/02/18 00:09 00:39 00:39 WBC 7.0 RBC 3.17 L Hgb 9.8 L Hct 28.9 L MCV 91.2 MCH 30.9 MCHC 33.9 RDW 15.1 H Plt Count 181 MPV 7.5 Absolute Neuts (auto) 5.70 Absolute Lymphs (auto) 0.60 L Absolute Monos (auto) 0.60 Absolute Eos (auto) 0.10 Absolute Basos (auto) 0.00 Neutrophils % 81.7 H Lymphocytes % 8.5 L Monocytes % 8.5 Eosinophils % 1.0 Basophils % 0.3 Sodium 135 Potassium 4.8 Chloride 106 Carbon Dioxide 19 L Anion Gap 14.8 BUN 36 H Creatinine 2.28 H BUN/Creatinine Ratio 15.8 Random Glucose 111 H Serum Osmolality 279.1 Lactic Acid Calcium 10.6 H Magnesium 1.4 L Total Bilirubin 0.4 AST 21 ALT < 8 L Alkaline Phosphatase 86 Creatine Kinase 25 L CK-MB (CK-2) 3.3 CK-MB (CK-2) % Not Reportable Troponin I 0.85 H* B-Natriuretic Peptide 480.0 H* Serum Total Protein 6.9 Albumin 3.1 L Globulin 3.8 H Albumin/Globulin Ratio 0.8 L Amylase 116 H Lipase 54 H Urine Color Yellow Urine Appearance Cloudy Urine pH 6.0 Ur Specific [place] 1.020 Urine Protein 100 H Urine Glucose (UA) Negative Urine Ketones Negative Urine Blood Small H Urine Nitrite Negative Urine Bilirubin Negative Urine Urobilinogen 0.2 Ur Leukocyte Esterase Small H Urine RBC 3-5 H Urine WBC 20-30 H Ur Epithelial Cells 0-1 Urine Bacteria 4+ H 04/02/18 00:39 WBC RBC Hgb Hct MCV MCH MCHC RDW Plt Count MPV Absolute Neuts (auto) Absolute Lymphs (auto) Absolute Monos (auto) Absolute Eos (auto) Absolute Basos (auto) Neutrophils % Lymphocytes % Monocytes % Eosinophils % Basophils % Sodium Potassium Chloride Carbon Dioxide Anion Gap BUN Creatinine BUN/Creatinine Ratio Random Glucose Serum Osmolality Lactic Acid 1.6 Calcium Magnesium Total Bilirubin AST ALT Alkaline Phosphatase Creatine Kinase CK-MB (CK-2) CK-MB (CK-2) % Troponin I B-Natriuretic Peptide Serum Total Protein Albumin Globulin Albumin/Globulin Ratio Amylase Lipase Urine Color Urine Appearance Urine pH Ur Specific [place] Urine Protein Urine Glucose (UA) Urine Ketones Urine Blood Urine Nitrite Urine Bilirubin Urine Urobilinogen Ur Leukocyte Esterase Urine RBC Urine WBC Ur Epithelial Cells Urine Bacteria acute abdominal series appears benign. Departure - Departure Clinical Impression: Orthostasis, Hypomagnesemia Acute renal failure Qualifiers: Acute renal failure type: unspecified Qualified Code(s): N17.9 - Acute kidney failure, unspecified Urinary tract infection Qualifiers: Urinary tract infection type: acute cystitis Hematuria presence: without hematuria Qualified Code(s): N30.00 - Acute cystitis without hematuria Anemia Qualifiers: Anemia type: unspecified type Qualified Code(s): D64.9 - Anemia, unspecified Gastritis Qualifiers: Gastritis type: unspecified gastritis Chronicity: acute Gastritis bleeding: presence of bleeding unspecified Qualified Code(s): K29.00 - Acute gastritis without bleeding Disposition: Admit Patient Referrals: Omar Serna MD [Primary Care Provider] - 1-2 Weeks Home Medications: Ambulatory Orders Lisinopril 40 mg PO DAILY 07/26/14 Amlodipine Besylate 5 mg PO DAILY 02/24/18 Carvedilol 6.25 mg PO BEDTIME 02/24/18 Multiple Vitamins W/ Minerals [Multivitamin Adults] 1 tab PO DAILY 02/24/18 HYDROcodone 5MG/APAP 325MG [Flomaton 5/325] 1 ea PO Q4H PRN tab 03/02/18 Rivaroxaban [Xarelto] 10 mg PO DAILY 30 Days #30 tab 03/02/18
[2018-04-02] MEDS ORDERED: SUCRALFATE 1 GM/10 ML 1 GM UD PO ONE (02:04)
[2018-04-02] MEDS ORDERED: PANTOPRAZOLE SODIUM IV 40 MG VIAL IV ONE (02:04)
--- NOTE | 2018-04-02 02:32 | HP ---
SUPERVISING PHYSICIAN: Omar Serna M.D. CHIEF COMPLAINT: Abdominal pain with vomiting. HISTORY OF PRESENT ILLNESS: This is an 87 year-old female patient who has had nausea and vomiting off and on since last Friday. She said it hit her suddenly but it worsened today to the point that she came to the Emergency Room. She was very weak and dizzy. She has not vomited any blood nor has she had any blood in her stool. On 02/24/18 she had a right hip replacement and she just finished taking her postoperative Xarelto several days ago. She has also been chronically anemic since that time. Her hemoglobin in the Emergency Room was 9.8 and hematocrit was 28.9. She had a normal white count but she had a left shift. Her sodium was 135, potassium 4.8, chloride 106, carbon dioxide 19, magnesium 1.4, calcium 10.6. BUN 36, creatinine 2.28, her normal creatinine is 1.1. She also had an elevated troponin of 0.85 with a BNP of 480. Albumin was 3.1 with globulin 3.8. Amylase 16, lipase 54. She also had a positive tilt in the Emergency Room. She was found to have a urinary tract infection. Her urine protein was 100, small amount of urine blood, small amount of urine leukocyte esterase, 3 to 5 urine RBCs, 20 to 30 urine WBCs and 4+ urine bacteria. Blood cultures were drawn. Urine culture was obtained. She received fluids in the Emergency Room as well as Rocephin and Zofran. Magnesium was also replaced. I was called for hospital admission. PAST MEDICAL HISTORY: 1. Hypertension. 2. Congestive heart failure with grade 2 diastolic dysfunction, unknown ejection fraction. 3. Obstructive sleep apnea. 4. Osteopenia. 5. Benign positional vertigo. PAST SURGICAL HISTORY: 1. Appendectomy. 2. Cholecystectomy. 3. Hysterectomy. 4. Total right knee replacement. 5. Right total hip replacement. CURRENT MEDICATIONS: Per the EMR and awaiting verification. ALLERGIES: SULFA. SOCIAL HISTORY: She is retired. She is . She has 3 children. She denies tobacco, ETOH or illicit drug use. REVIEW OF SYSTEMS: GENERAL: Negative for fever or chills or weight changes. HEENT: Negative for ear pain, vision changes, sore throat or sinus symptoms. RESPIRATORY: Negative for shortness of breath, coughing or wheezing. CARDIOVASCULAR: Negative for chest pain, palpitations or tachycardia. GASTROINTESTINAL: Positive for nausea and vomiting. Negative for constipation or diarrhea. GENITOURINARY: Positive for polyuria. Negative for hematuria or dysuria. MUSCULOSKELETAL: Negative for back pain, myalgias or arthralgias. SKIN: Negative for lesions or rashes. NEUROLOGIC: Positive for dizziness, weakness. Negative for headache or seizures. PHYSICAL EXAMINATION: VITAL SIGNS: Temperature 99.5, blood pressure 103/46, respiratory rate 18, heart rate 92, O2 sat is 95%. GENERAL: This is an 87 year-old female patient lying in her hospital bed. She is in no acute distress. HEENT: Normocephalic and atraumatic. Pupils are equal and reactive. Oropharynx is clear. Oral mucous membranes are dry. NECK: Supple without mass. RESPIRATORY: Essentially clear to auscultation bilaterally. CHEST: There is equal rise and fall of the chest with inspiration and expiration. CARDIOVASCULAR: Regular rate and rhythm. GASTROINTESTINAL: Abdomen is soft, nondistended, non-tender. Bowel sounds are positive. EXTREMITIES: No cyanosis, clubbing or edema. NEUROLOGIC: She is awake, alert and oriented times three. LABORATORY: Labs are per the history of present illness. Abdominal x-ray shows no acute findings. All other labs and films have been reviewed via the EMR. ASSESSMENT: 1. Abdominal pain with nausea and vomiting. 2. Acute on chronic kidney failure 3. Normochromic/normocytic anemia. 4. Elevated troponin most likely secondary to kidney disease. 5. Dehydration. 6. Urinary tract infection. 7. Hypertension. 8. Hypomagnesemia. 9. Elevated BNP with questionable exacerbation of congestive heart failure. PLAN: We will admit the patient to the hospital. Will continue giving her fluids, including 1 liter of D5W with 75 of bicarb. Will have Zofran for nausea. Will recheck her labs in the morning including a CBC as she may need a blood transfusion in the AM as she has been chronically anemic. I will also recheck her troponin. She has not had any chest pain. The elevated troponin is most likely due to her elevated BNP as well as her troponin, but will closely follow. I will continue her Rocephin for her urinary tract infection and start her home medications. I have ordered a PPI for ulcer prophylaxis and SCDs for DVT prophylaxis. She has finished her Xarelto so will start her daily aspirin. Will continue to monitor her closely and follow as needed. Dr. Serna is the collaborating physician available for consultation. #[id number] [facility]
[2018-04-02] MEDS ORDERED: SODIUM CHLORIDE 0.9% (FLUSH) 10 ML SYG IV PRN (03:34)
[2018-04-02] MEDS ORDERED: ONDANSETRON INJ 4 MG/2 ML VIAL IV PRN (03:35)
[2018-04-02] MEDS: IV SET AND CAP CHANGE INJ INJ SCH (04:00)
[2018-04-02] MEDS ORDERED: PANTOPRAZOLE SODIUM IV 40 MG VIAL IV SCH (04:00)
[2018-04-02] MEDS: SODIUM CHLORIDE 0.45% 1000ML 1,000 ML IVS PRN ×2 (04:07→12:37)
[2018-04-02] MEDS ORDERED: SODIUM CHLORIDE 0.9% (FLUSH) 10 ML SYG IV SCH (09:00)
[2018-04-02] MEDS ORDERED: cefTRIAXone SODIUM 1 GM in SODIUM CHL 0.9% 50ML MIN-BAG+ 50 ML IVPB SCH ×2 (12:00→16:30)
[2018-04-02] MEDS ORDERED: SODIUM BICARBONATE SYRINGE 75 MEQ in DEXTROSE 5% 1000ML 1,000 ML IV ONE (16:30)
[2018-04-02] MEDS ORDERED: SODIUM BICARBONATE SYRINGE 50 MEQ/50 ML SYG IV ONE (16:58)
[2018-04-02] MEDS ORDERED: DEXTROSE 5% 1000ML 1,000 ML IVS ONE (16:58)
[2018-04-02] MEDS ORDERED: PANTOPRAZOLE SODIUM TAB 40 MG PO ONE (19:47)
[2018-04-02] MEDS ORDERED: CARVEDILOL 3.125 MG TAB ONE (19:47)
[2018-04-02] MEDS ORDERED: LISINOPRIL 10 MG TAB ONE (19:47)
[2018-04-02] MEDS ORDERED: NON-FORMULARY MEDICATION 1 EA MIS (Carvedilol [Carvedilol] 6.25 MG) PO SCH (21:00)
[2018-04-02] MEDS ORDERED: LISINOPRIL 40 MG PO SCH (21:00)
[2018-04-03] MEDS: ACETAMINOPHEN 325 MG TAB PO PRN (02:29)
[2018-04-03] MEDS: PANTOPRAZOLE SODIUM TAB 40 MG PO SCH (06:19)
[2018-04-03] MEDS ORDERED: CARVEDILOL 12.5 MG TAB ONE (07:57)
[2018-04-03] MEDS ORDERED: diphenhydrAMINE HCL 50 MG/ML VIAL IV ONE (08:24)
[2018-04-03] MEDS ORDERED: FUROSEMIDE INJ 20 MG/2 ML VIAL IV ONE (08:24)
[2018-04-03] MEDS ORDERED: ACETAMINOPHEN 325 MG TAB PO ONE (08:24)
[2018-04-03] MEDS ORDERED: SODIUM CHLORIDE 0.9% 500ML 500 ML IVS SCH (08:30)
[2018-04-03] MEDS: ASPIRIN (ENTERIC COATED) 81 MG TAB PO SCH (10:06)
[2018-04-03] MEDS: CARVEDILOL 3.125 MG TAB PO SCH ×2 (10:18→21:23)
[2018-04-03] MEDS ORDERED: cefTRIAXone SODIUM 1 GM VIAL ONE (12:21)
[2018-04-03] MEDS ORDERED: SODIUM CHL 0.9% 50ML MIN-BAG+ 50 ML IVPB ONE (12:21)
[2018-04-03] MEDS: cefTRIAXone SODIUM 1 GM in SODIUM CHL 0.9% 50ML MIN-BAG+ 50 ML IVPB SCH (12:41)
--- NOTE | 2018-04-03 14:16 | PN ---
SUPERVISING PHYSICIAN: Omar Serna MD DATE: 04/03/18 SUBJECTIVE: The patient is up to the bathroom in her hospital room. She is using her walker. She has had no nausea or vomiting. She continues to be fairly weak, but is ambulating about her room without any problems. She denies chest pain or shortness of breath. OBJECTIVE: VITAL SIGNS: Afebrile. Heart rate 73. Blood pressure 122/65. Respiratory rate 18. O2 saturation 96% on room air. RESPIRATORY: Essentially clear to auscultation bilaterally. CARDIAC: Regular rate and rhythm. GASTROINTESTINAL: Abdomen is soft, nondistended, nontender. Bowel sounds are positive. EXTREMITIES: No cyanosis, clubbing or edema. NEUROLOGIC: Awake, alert and oriented times three. LABORATORY: WBCs 9.2, hemoglobin 8, hematocrit 23.4. Neutrophils 73.3. Sodium 139, potassium 4.4, chloride 110, carbon dioxide 21, BUN 32, creatinine 1.92, glucose 123, magnesium 1.9. Troponin 0.97. Preliminary blood cultures show no growth after 24 hours. Urine culture pending. All other labs and films have been reviewed via the EMR. ASSESSMENT: 1. Abdominal pain with nausea and vomiting, mostly resolved. 2. Acute on chronic kidney failure, slowly improving. 3. Normochromic/normocytic anemia. Her hemoglobin was 8 this morning. 4. Elevated troponin most likely secondary to kidney disease as well as elevated BNP. 5. Dehydration. 6. Urinary tract infection. 7. Hypertension. 8. Hypomagnesemia, improved. 9. Elevated BNP with questionable exacerbation of congestive heart failure. PLAN: We will continue present supportive care. Due to her extreme weakness over the last week or so and her chronic anemic state, I will give her 2 units of packed red blood cells. Her troponin is slightly up more than troponin was on admission. I spoke with Dr. Peres and gave him the details of her condition. There is no clear evidence for troponin testing as the patient had no chest pain on admission to the Emergency Room. The mildly elevated troponin is most likely secondary to her renal insufficiency and mild diastolic heart failure as well as an elevated BNP. The patient has had no chest pain since her hospital admission and there has been on evidence of any EKG changes. I will repeat her lab in the morning. We will continue to monitor the patient closely and follow as needed. Dr. Serna is the collaborating physician and available for consultation. #[id number] [facility]
[2018-04-03] MEDS: LISINOPRIL 10 MG TAB PO SCH (21:23)
[2018-04-04] MEDS: PANTOPRAZOLE SODIUM TAB 40 MG PO SCH (06:28)
[2018-04-04] MEDS: CARVEDILOL 3.125 MG TAB PO SCH ×2 (08:20→20:38)
[2018-04-04] MEDS: ASPIRIN (ENTERIC COATED) 81 MG TAB PO SCH (08:20)
[2018-04-04] MEDS ORDERED: SODIUM CHL 0.9% 50ML MIN-BAG+ 50 ML IVPB ONE (12:39)
[2018-04-04] MEDS ORDERED: cefTRIAXone SODIUM 1 GM VIAL ONE (12:39)
[2018-04-04] MEDS: cefTRIAXone SODIUM 1 GM in SODIUM CHL 0.9% 50ML MIN-BAG+ 50 ML IVPB SCH (12:47)
--- NOTE | 2018-04-04 14:47 | PN ---
DATE: 04/04/18 SUPERVISING PHYSICIAN: Pino Olievira M.D. SUBJECTIVE: The patient is sitting up in her hospital bed. Her and daughter are at the bedside. After the blood infusion, she feels so much stronger and has felt like she has improved greatly since coming into the hospital. We discussed the discharge plan for tomorrow. She has denied any chest pain, shortness of breath, nausea or vomiting. OBJECTIVE: VITAL SIGNS: She is afebrile, heart rate 70, blood pressure 146/69, respiratory rate 16, O2 sat 95% on room air. RESPIRATORY: Essentially clear to auscultation bilaterally. CARDIAC: Regular rate and rhythm. GASTROINTESTINAL: Abdomen is soft, nondistended, non-tender. Bowel sounds are positive. NEUROLOGIC: She is awake, alert and oriented times three. LABORATORY: WBCs have normalized to 6.9 with hemoglobin 10.7, hematocrit 31.6. Electrolytes are basically within normal limits. BUN 29, creatinine 1.76. Preliminary blood cultures show no growth after 48 hours. Urine culture is pending. All other labs and films have been reviewed via the EMR. ASSESSMENT: 1. Abdominal pain with nausea and vomiting, mostly resolved. 2. Acute on chronic kidney failure, slowly improving. 3. Normochromic/normocytic anemia. Her hemoglobin this morning after 2 units of blood was 10.7. 4. Elevated troponin most likely secondary to kidney disease as well as elevated BNP. 5. Dehydration. 6. Urinary tract infection. 7. Hypertension. 8. Hypomagnesemia, improved. 9. Elevated BNP with questionable exacerbation of congestive heart failure. PLAN: We will continue present supportive care. I will check lab in the morning and watch her renal function. If she continues to improve, she will be discharged home tomorrow with close followup with her primary care physician, Dr. Serna as well as her continued physical therapy. Will monitor closely and follow as needed. Dr. Oliveira is the collaborating physician available for consultation. #[id number] [facility]
[2018-04-04] MEDS: LISINOPRIL 10 MG TAB PO SCH (20:39)
[2018-04-04] MEDS: ACETAMINOPHEN 325 MG TAB PO PRN (23:43)
[2018-04-05] MEDS: IV SET AND CAP CHANGE INJ INJ SCH (04:10)
[2018-04-05] MEDS: PANTOPRAZOLE SODIUM TAB 40 MG PO SCH (06:02)
[2018-04-05 06:04] VITALS: BP 146/70; TEMP 98.8
[2018-04-05] MEDS ORDERED: FUROSEMIDE INJ 40 MG/4 ML VIAL IV ONE (06:23)
[2018-04-05] MEDS ORDERED: POTASSIUM CHLORIDE 20 MEQ TAB PO ONE (06:24)
[2018-04-05] MEDS ORDERED: FUROSEMIDE INJ 20 MG/2 ML VIAL ONE (06:27)
[2018-04-05 08:10] VITALS: O2SAT 98
[2018-04-05] MEDS: ASPIRIN (ENTERIC COATED) 81 MG TAB PO SCH (08:47)
[2018-04-05] MEDS: CARVEDILOL 3.125 MG TAB PO SCH (08:47)
--- NOTE | 2018-04-05 20:33 | DS ---
SUPERVISING PHYSICIAN: Pino Oliveira M.D. DISCHARGE DIAGNOSIS: 1. Abdominal pain with nausea and vomiting, mostly resolved. 2. Acute on chronic kidney failure, improved. Her baseline creatinine is 1.15 , today it is 1.52. 3. Normochromic/normocytic anemia. Her hemoglobin this morning after 2 units of blood was 10.7. Hemoglobin this morning is 10.6. She received 2 units of blood on Friday. 4. Elevated troponin most likely secondary to kidney disease as well as elevated BNP. 5. Dehydration. 6. Urinary tract infection. 7. Hypertension. 8. Hypomagnesemia, improved. 9. Elevated BNP without exacerbation of congestive heart failure. HISTORY OF PRESENT ILLNESS: This is an 87 year-old female patient who had had nausea and vomiting off and on since last Friday. She said it hit her suddenly but on the day of admission it had worsened to the point that she had to be brought to the Emergency Room. She was very weak and dizzy. There was no history of any bloody emesis nor had she had any blood in her stool. On she had a right hip replacement several days prior to admission to the Emergency Room. She had finished her postoperative Xarelto. Since her hip replacement she had been chronically anemic. Her hemoglobin in the Emergency Room was 9.8 and hematocrit was 28.9. She had a normal white count but there was a left shift. Her sodium was 135, potassium 4.8, chloride 106, carbon dioxide 19, magnesium 1.4, calcium 10.6. BUN 36, creatinine 2.28, her normal creatinine is 1.1. Her troponin was also elevated at 0.85 and a BNP of 480. Albumin was 3.1 with globulin 3.8. Amylase 16, lipase 54. She also had a positive tilt in the Emergency Room with severe dehydration and found to have a urinary tract infection. Her urine protein was 100, small amount of urine blood , small amount of urine leukocyte esterase, 3 to 5 urine RBCs, 20 to 30 urine WBCs and 4+ urine bacteria. Blood cultures were drawn. Urine culture was obtained. She received fluids in the Emergency Room as well as Rocephin and Zofran. Magnesium was also replaced and she was admitted to the hospital. HOSPITAL COURSE: Her hemoglobin and hematocrit slowly dropped over the next 2 days and on the her hemoglobin was 8 and hematocrit 23.4. Due to her weakness and chronic anemia, she received 2 units of packed red blood cells. Her WBCs did normalize and they are 6.9 today on discharge. Potassium was somewhat high when she came in but her electrolytes normalized over the next several days. Troponin did continue to elevated. On the second day it was 0.88 and on the 8th it was 0.97. I called Dr. Peres, order processing specialist in [place]. He felt that her troponin was elevated due to her renal function as well as her slightly elevated BNP. There is no clear evidence for troponin testing as the patient had no chest pain on admission to the Emergency Room. The mildly elevated troponin was most likely secondary to her renal insufficiency and mild diastolic heart failure as well as an elevated BNP. The patient has had no chest pain since her hospital admission and there have been no evidence of any EKG changes. Her creatinine today has improved to 1.5. She worked with Physical Therapy and is doing very well with her strengthening and conditioning from her postoperative hip surgery, and she will be discharged home in stable condition. DISCHARGE PLAN: The patient will be discharged home in stable condition. She is to followup with Dr. Serna within the next 1 to 2 weeks. She is to resume her previous diet and activity level. She will resume her physical therapy on an outpatient basis. It is to be noted that we did not have he urine culture back at time of discharge so it is recommended that the culture be checked when she sees Dr. Serna. I will send her home on Cefdinir for 7 days. She is to call Dr. Serna' office or return to the hospital for any further problems or complications. I recommended at her office visit with Dr. Serna that she get a CBC and a CMP drawn at that time. DISCHARGE MEDICATIONS: 1. Lisinopril. 2. Carvedilol. 3. Multivitamin. 4. 81 mg aspirin. 5. Cefdinir. #[id number] [facility]
== END 2018-04-05 10:35 | disposition home or self-care (01) | DRG 683 ==
LOC: ER 23:42 → MS 04-02 02:30 → OBSVTOIN 04-02 02:30
PROVIDERS: ADMIT Nurse Practitioner Acute Care; ATTEND Nurse Practitioner Acute Care
PROC: 30233N1 Transfusion of Nonautologous Red Blood Cells into Peripheral Vein, Percutaneous Approach (ICD-10-PCS; principal; 2018-04-03)
DX: N17.9 Acute kidney failure, unspecified (principal); N39.0 Urinary tract infection, site not specified; I13.0 Hypertensive heart and chronic kidney disease with heart failure and stage 1 through stage 4 chronic kidney disease, or unspecified chronic kidney disease; I50.32 Chronic diastolic (congestive) heart failure; D64.9 Anemia, unspecified; E86.0 Dehydration; E83.42 Hypomagnesemia; N18.9 Chronic kidney disease, unspecified; I95.1 Orthostatic hypotension; E87.5 Hyperkalemia; K29.70 Gastritis, unspecified, without bleeding; R11.2 Nausea with vomiting, unspecified; R10.9 Unspecified abdominal pain; R74.8 Abnormal levels of other serum enzymes; G47.33 Obstructive sleep apnea (adult) (pediatric); M85.80 Other specified disorders of bone density and structure, unspecified site; H81.10 Benign paroxysmal vertigo, unspecified ear; Z96.641 Presence of right artificial hip joint; Z96.651 Presence of right artificial knee joint; Z88.2 Allergy status to sulfonamides; Z79.891 Long term (current) use of opiate analgesic; Z79.899 Other long term (current) drug therapy

== ENCOUNTER → 2018-11-24 | Outpatient (CLI) | payer MEDICARE, OTHER ==
--- NOTE | 2018-11-25 09:08 | MAM ---
EXAM DESCRIPTION: 3D Screening BILATERAL : Digital Mammography. CLINICAL HISTORY: 88 years Female SCREENING . No complaints. No personal or family history of breast cancer. Childbirth. Postmenopausal. HRT 5 or more years ago.. Lifetime risk of developing breast cancer (Tyrer-Cuzick model)(%): Not Calculated due to patient's age greater than 85. COMPARISON: Bilateral screening digital breast tomosynthesis 11/12/2017. TECHNIQUE: Bilateral CC and MLO projection full-field images, digital tomosynthesis mammographic technique Bilateral digital 2-D full-field MLO images. CAD not available for tomosynthesis or 2-D images. FINDINGS: The breast parenchymal density pattern is: Scattered areas of fibroglandular density. No skin thickening or nipple retraction. Bilateral vascular calcifications. Right axillary lymph node. Right mid breast intramammary lymph node. No new focal, stellate mass or density, focal asymmetry , and no suspicious microcalcifications bilaterally. Stable mammograms compared to prior study. IMPRESSION: Benign exam. BIRAD CATEGORY: 2 BENIGN FINDINGS. RECOMMENDATIONS: FOLLOW UP: Routine digital bilateral mammographic screening, one year interval from October 2018. Written communication explaining the IMPRESSION and follow-up, will be mailed to the patient and referring health care provider. According to the [employer], yearly mammograms are recommended starting at age 40 and continuing as long as a woman is in good health. Any breast change noted on a breast self-exam should be reported promptly to the patient's healthcare provider. Breast MRI is recommended for women with an approximately 20-25% or greater lifetime risk of breast cancer, including women with a strong family history of breast or ovarian cancer and women who have been treated for Hodgkin's disease. A negative mammographic report should not delay tissue diagnosis in patients with significant clinical history or physical findings. Extremely dense breast tissue limits the sensitivity of digital mammography. Electronically signed by: Amos Griffin MD 11/25/2018 9:07 AM [employer]
== END ==
LOC: MAMMO 13:30
PROVIDERS: ATTEND Family Medicine
DX: Z12.31 Encounter for screening mammogram for malignant neoplasm of breast (principal)

== ENCOUNTER 2020-09-19 14:58 | Outpatient (CLI) | payer MEDICARE, OTHER | END 2020-09-25 15:25 | disposition home or self-care (01) | LOC: INFRM 14:58 | PROVIDERS: ATTEND Family Medicine | DX: U07.1 COVID-19 (principal); I10 Essential (primary) hypertension; Z23 Encounter for immunization ==